=== PATIENT | female | born 2000 | race American Indian/Alaskan Native ===

== ENCOUNTER 2021-10-20 11:45 | Emergency (ER) | payer SELFPAY ==
[2021-10-20 13:23] LABS: Basophils % (Auto) 0.6 % (0.0-1.8); Eosinophils # (Auto) 0.1 K/mm3 (0.0-0.4); Eosinophils % (Auto) 1.4 % (0.0-4.3); Hematocrit 38.3 % (30.3-42.9); Hemoglobin 12.4 gm/dl (10.1-14.3); Lymphocytes # (Auto) 1.4 K/mm3 (1.2-5.4); Lymphocytes % (Auto) 21.4 % (13.4-35.0); Mean Corpuscular HGB Conc 32 % (30-34); Mean Corpuscular Volume 89 fl (79-97); Monocytes # (Auto) 0.4 K/mm3 (0.0-0.8); Monocytes % (Auto) 6.5 % (0.0-7.3); Platelet Count 220 K/mm3 (140-440); Red Blood Count 4.32 M/mm3 (3.65-5.03); Red Cell Distribution Width 15.1 % (13.2-15.2)
[2021-10-20 13:45] LABS: Alanine Aminotransferase 26 units/L (7-56); Albumin 4.7 g/dL (3.9-5); Blood Urea Nitrogen 6 mg/dL (7-17); Calcium 9.6 mg/dL (8.4-10.2); Hemolysis Index 0
[2021-10-20 14:06] LABS: BUN/Creatinine Ratio 9
--- NOTE | 2021-10-20 18:21 | Emergency Department Report ---
Chief Complaint: Psych Stated Complaint: BRAIN ISSUES-AUTOIMMUNE ENCEPHALITIS Time Seen by Provider: 10/20/21 12:47 - HPI History of Present Illness: General: Nontoxic appearing no acute distress Cardiac: Regular rate, normal heart sounds Respiratory: Normal lung sounds bilaterally no use of cork tipper muscles GI/-normal sounds, nontender no guarding Musculoskeletal-normal inspection full range of motion Neuro-alert oriented x4. Very pleasant interactive 21-year-old female brought in by her mother for evaluation of "hallucinations, behavior changes. 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 Otherwise no drug use, no SI, no HI, In the setting of a significantly high volume and record number of patients presenting to the emergency department and the fact that we have a limited space to see patients we have implemented the provider in triage protocol this allows an expedited initial exam of patients that might otherwise have left without being seen or who would wait longer than usual to be seen by provider. I interviewed the patient and performed a limited physical exam. This patient is a pulled from the waiting room to triage room for an initial assessment of adrenal studies and then returned to the waiting room pending results of the studies. The ultimate final evaluation and disposition may be performed by another provider depending on room and provider availability. - Exam Vital Signs: Vital Signs 10/20/21 12:47 Temperature 98.4 F Pulse Rate 104 H Respiratory 20 Rate Blood Pressure 153/96 [Right] O2 Sat by Pulse 97 Oximetry MSE screening note: Focused history and physical exam performed. Due to findings the following was ordered: Labs cultures immediate bedding, psych consult ED Medical Decision Making - Lab Data Result diagrams: 10/20/21 13:02 10/20/21 13:02 ED Disposition for MSE Condition: Stable
[2021-10-21 02:06] LABS: Amphetamine Screen,Urine PRESUMPTIVE NEGATIVE; Benzodiazepines Screen,Urine PRESUMPTIVE NEGATIVE; Cannabinoid Screen,Urine PRESUMPTIVE POSITIVE; Cocaine Screen,Urine PRESUMPTIVE NEGATIVE; Methadone Screen,Urine PRESUMPTIVE NEGATIVE; Opiate Screen,Urine PRESUMPTIVE NEGATIVE
[2021-10-21 02:10] LABS: Bacteria,Urine 1+ /HPF (Negative); Mucus,Urine FEW /HPF; RBC,Urine < 1.0 /HPF (0.0-6.0)
[2021-10-21 02:28] LABS: Bilirubin,Urine Negative (Negative); Blood,Urine Negative (Negative); Color,Urine Yellow (Yellow); Urobilinogen,Urine < 2.0 mg/dL (<2.0)
--- NOTE | 2021-10-21 03:47 | Emergency Department Report ---
ED General Adult HPI - General Chief complaint: Psych Stated complaint: BRAIN ISSUES-AUTOIMMUNE ENCEPHALITIS Time Seen by Provider: 10/20/21 12:47 Source: patient, family Mode of arrival: Ambulatory Limitations: No Limitations - History of Present Illness Initial comments: Patient is a 21-year-old female brought in by family for evaluation. Mother states that beginning in July patient has had intermittent outburst and periods of altered mental status and headache. States she was admitted to [facility] in August after having one of the episodes. She received extensive work-up including MRI and labs. No definitive diagnosis was made however mother states they had planned to perform LP if patient presented again with said symptoms to rule out possible autoimmune encephalitis. Patient had another episode that same month and presented to the emergency department however she did not receive LP and was instead placed on 1013 hold and transferred to [place] where she stayed for over a week. Again no definitive psychiatric diagnosis was made and patient was sent home on antipsychotic medication. Mother states that she is having difficulty arranging follow-up with neurology at [facility]. Patient is currently alert, oriented and in no acute distress. Severity scale (0 -10): 0 - Related Data Allergies Allergy/AdvReac Type Severity Reaction Status Date / Time No Known Allergies Allergy Verified 10/20/21 12:51 ED Review of Systems ROS: Stated complaint: BRAIN ISSUES-AUTOIMMUNE ENCEPHALITIS Other details as noted in HPI Constitutional: denies: chills, fever Respiratory: denies: cough, shortness of breath, wheezing Cardiovascular: denies: chest pain, palpitations Gastrointestinal: denies: abdominal pain, nausea, diarrhea Musculoskeletal: denies: back pain, joint swelling, arthralgia Skin: denies: rash, lesions Neurological: denies: headache, weakness, paresthesias Psychiatric: other (Agitation) ED Physical Exam - General Limitations: No Limitations General appearance: alert, in no apparent distress - Head Head exam: Present: atraumatic, normocephalic - Neck Neck exam: Present: normal inspection - Respiratory Respiratory exam: Present: normal lung sounds bilaterally. Absent: respiratory distress - Cardiovascular Cardiovascular Exam: Present: regular rate, normal rhythm, normal heart sounds - GI/Abdominal GI/Abdominal exam: Present: soft. Absent: distended, tenderness - Rectal Rectal exam: Present: deferred - Neurological Exam Neurological exam: Present: alert, oriented X3 - Psychiatric Psychiatric exam: Present: normal affect, normal mood - Skin Skin exam: Present: warm, dry, intact, normal color ED Course Vital Signs 10/20/21 12:47 Temperature 98.4 F Pulse Rate 104 H Respiratory 20 Rate Blood Pressure 153/96 [Right] O2 Sat by Pulse 97 Oximetry ED Medical Decision Making - Lab Data Result diagrams: 10/20/21 13:02 10/20/21 13:02 - Medical Decision Making Labs are essentially unremarkable. Patient not exhibiting signs/symptoms of encephalitis. I do not feel LP is warranted at this time. I encouraged family to follow-up with [facility] neurology at earliest convenience. Critical care attestation.: If time is entered above; I have spent that time in minutes in the direct care of this critically ill patient, excluding procedure time. ED Disposition Clinical Impression: Episode of abnormal behavior Disposition: 01 HOME / SELF CARE / HOMELESS Is pt being admited?: No Condition: Stable Additional Instructions: Please continue your attempts to follow-up with [facility] neurology. Please do not hesitate to return if your condition worsens or if new concerns/symptoms develop. Referrals: PRIMARY CARE, [Primary Care Provider] - 3-5 Days Time of Disposition: 03:50
[2021-10-21 04:00] VITALS: BP 118/70
== END 2021-10-21 04:00 | disposition home or self-care (01) ==
LOC: ED 11:45
DX: R46.89 Other symptoms and signs involving appearance and behavior (principal); R51.9 Headache, unspecified; R41.82 Altered mental status, unspecified; Z79.899 Other long term (current) drug therapy
CPT/HCPCS: 36415; 80053; 80307; 80320; 81001; 82140; 84703; 85025; 87040; 99283; G0480